=== PATIENT | male | born 1975 | race Caucasian/White ===

== ENCOUNTER 2022-09-15 14:34 | Emergency (ER) | payer OTHER, SELFPAY ==
--- NOTE | ~2022-09-15 | XR_ITS ---
EXAMINATION: XR chest 1V portable 09/15/2022 14:56 INDICATION: Chest pain PROCEDURE: AP portable chest COMPARISON: No prior studies for comparison. FINDINGS: The lungs are clear. The cardiomediastinal silhouette is within normal limits. There are no pleural effusions. There is no pneumothorax suspected. IMPRESSION: 1: NO ACUTE CARDIOPULMONARY DISEASE. Reviewed, dictated and finalized at location A.
[2022-09-15 14:35] VITALS: BP 113/76; PULSE 74; RESP 10; TEMP 36.3; O2SAT 100
[2022-09-15 14:40] VITALS: BP 117/79; PULSE 68; RESP 14; TEMP 36.6; O2SAT 97
--- NOTE | 2022-09-15 14:40 | ECG_ITS ---
Measurements Intervals [place] Rate: 61 P: 72 FL: 169 QRS: 85 QRSD: 99 T: 66 QT: 421 QTc: 425 Interpretive Statements SINUS RHYTHM NORMAL ECG NO PREVIOUS ECG AVAILABLE FOR COMPARISON Electronically Signed On 09-15-2022 20:31:32 CDT by Avelino Segovia D.O.
--- NOTE | 2022-09-15 14:40 | ED.CHESTPAIN ---
HPI - Chest Pain General Chief Complaint: Chest Pain Stated Complaint: chest pain Time Seen by Provider: 09/15/22 14:40 Source: patient Mode of arrival: ambulatory Limitations: no limitations History of Present Illness HPI narrative: 46-year-old male, smoker with a positive family history of coronary artery disease was smoking marijuana and synthetic THC 45 minutes ago when he developed -- acute onset substernal chest pain rated as 8/10. No radiation of the pain. -- Nausea with 5 episodes of vomiting -- no shortness of breath. No lightheadedness. -- Diaphoretic his friend called EMS and brought him to our ER. The patient had an EKG done by EMS which did not show any acute findings. The patient has ongoing chest pain 5/10. MD complaint: chest pain Onset (ago): minute(s) ( Symptoms started 45 minutes ago) Timing of current episode: constant Prior episodes: No Onset: during rest Pain location: substernal Pain radiation: none Severity: severe Pain scale (0-10): 8 Quality: aching Relieving factors: nothing Exacerbating factors: nothing Associated symptoms: nausea, vomiting and diaphoresis Risk Factors Coronary artery disease risk factors: smoking history and family history of CAD before age 50 Related Data Allergies Allergy/AdvReac Type Severity Reaction Status Date / Time Penicillins Allergy Hives Verified 09/15/22 14:37 milk AdvReac Anaphylaxis Verified 09/15/22 14:37 Review of Systems Review of Systems: All systems reviewed & are unremarkable except as noted in HPI and below Constitutional: Constitutional: Reports as per HPI and Reports no additional constitutional complaints Eyes: Eyes: Reports as per HPI and Reports no additional eye complaints ENT: Reports system reviewed and no additional complaints, except as documented and Reports as per HPI Cardiovascular: Cardiovascular: Reports as per HPI, Reports no additional cardiovascular complaints and Reports chest pain Respiratory: Respiratory: Reports as per HPI and Reports no additional respiratory complaints Gastrointestinal: Gastrointestinal: Reports as per HPI and Reports no additional gastrointestinal complaints Genitourinary: Genitourinary: Reports no additional male genitourinary complaints and Reports as per HPI Musculoskeletal: Musculoskeletal: Reports no additional musculoskeletal complaints and Reports as per HPI Integumentary/Breasts: Skin/Breast: Reports system reviewed and no additional complaints, except as docu and Reports as per HPI Neurologic: Reports system reviewed and no additional complaints, except as documented and Reports as per HPI Psychiatric: Psychiatric: Reports no additional psychiatric complaints and Reports as per HPI Endocrine: Endocrine: Reports no additional endocrine complaints and Reports as per HPI Hematologic/Lymphatic: Hematologic/Lymphatic: Reports no additional hematologic/lymphatic complaints and Reports as per HPI Allergic/Immunologic: Allergic/Immunologic: Reports no additional allergic/immunologic complaints and Reports as per HPI [facility] Family History Family History (Updated 09/15/22 @ 14:59 by Cristóbal Cazares MD) Mother Heart disease Social History Social History (Updated 09/15/22 @ 14:58 by Crsitóbal Cazares MD) Social History: smoker. Marijuana user Exam Const: General: diaphoretic Orientation/consciousness: patient oriented x3 Limitations: no limitations HENMT: Head: normal to inspection Ears: external ears normal Face/Nose/Sinus: Normal external nose present Face and sinus: normal facial exam Mouth: Yes Normal oral and palatal mucosa present Throat: posterior oropharynx normal Eyes: Conjunctivae: conjunctivae normal Pupils: Equal, round and reactive pupils present EOM: EOMs intact bilaterally Direct Ophthalmoscopy: no photophobia Neck: Neck: normal visual inspection, no lymphadenopathy and no meningeal signs Chest: Chest palpation & inspection: normal inspection of the
[2022-09-15] MEDS: SODIUM CHLORIDE 0.9% IV 1,000 ML 1000 ML (14:43)
[2022-09-15] MEDS: ASPIRIN 81 MG CHEWABLE TABLET 324 MG PO (14:55)
[2022-09-15 15:03] LABS: Basophils Absolute Auto 0.06 K/mm3 (0.00-0.10); Basophils Percent Auto 0.6 % (0.0-1.0); Eosinophils Absolute Auto 0.22 K/mm3 (0.02-0.50); Eosinophils Percent Auto 2.1 % (1.0-6.0); Hematocrit 39.7 % (40.0-54.0); Hemoglobin 13.7 g/dL (14.0-18.0); Immature Granulocyte Absolute 0.04 K/mm3 (0.00-0.00); Immature Granulocyte Percent A 0.4 % (0.0-0.0); Lymphocytes Absolute Auto 2.34 K/mm3 (1.10-4.50); Lymphocytes Percent Auto 22.2 % (18.0-42.0); Mean Corpuscular HGB Conc 34.5 g/dL (32.0-36.0); Mean Corpuscular Hemoglobin 31.6 pg (27.0-31.0); Mean Corpuscular Volume 91.5 fL (78.0-102.0); Mean Platelet Volume 9.2 fl (8.7-11.0); Monocytes Absolute Auto 0.69 K/mm3 (0.10-0.90); Monocytes Percent Auto 6.6 % (2.0-11.0); Neutrophils Absolute Auto 7.2 K/mm3 (1.7-7.2); Neutrophils Percent Auto 68.1 % (50.0-70.0); Platelet Count Result 357 K/mm3 (150-420); Red Blood Count 4.34 M/mm3 (4.70-6.10); Red Cell Distribution Width 11.9 % (11.6-14.4); White Blood Count 10.5 K/mm3 (4.8-10.8)
[2022-09-15 15:21] LABS: Prothrombin Time 10.9 Seconds (9.64-11.0)
[2022-09-15 15:26] LABS: Alanine Aminotransferase 20 U/L (16-63); Albumin Level 3.5 g/dL (3.4-5.0); Alkaline Phosphatase 70 U/L (46-116); Anion Gap 9 mmol/L (8-16); Aspartate Amino Transferase < 10 U/L (15-37); Bilirubin,Total 0.7 mg/dL (0.00-1.00); Blood Urea Nitrogen 13 mg/dL (7-18); Calcium 8.8 mg/dL (8.5-10.1); Carbon Dioxide 28 mmol/L (21-32); Chloride 102 mmol/L (98-108); Estimated CRCL calculation 108 ml/min; Estimated Glomerular Filt Rate > 60; Glucose 138 mg/dL (70-99); NT Pro B Type Natriuretic Pept 25 pg/mL (0-125); Osmolality Calculated 290 mOsm/kg (285-295); Potassium 3.6 mmol/L (3.5-5.1); Sodium 139 mmol/L (136-145); Total Protein 6.9 g/dL (6.4-8.2); Troponin I < 4.0 ng/L (0.00-60.4)
[2022-09-15 15:29] LABS: D Dimer 0.31 mg/L (0.19-0.50)
[2022-09-15 15:30] VITALS: BP 112/79; PULSE 55; RESP 14; O2SAT 100
[2022-09-15 15:30] LABS: Partial Thromboplastin Time 23.6 SEC (23.90-30.70)
[2022-09-15 16:00] VITALS: BP 104/69; PULSE 57; RESP 14; O2SAT 100
[2022-09-15 16:30] VITALS: BP 106/76; PULSE 58; RESP 14; O2SAT 99
--- NOTE | 2022-09-15 16:32 | PC.NURSE ---
1530-PHYSICIAN AT BEDSIDE
[2022-09-15 17:30] VITALS: BP 110/75; PULSE 59; RESP 16; O2SAT 100
--- NOTE | 2022-09-15 17:51 | PC.NURSE ---
1645-SLIP SEAT COVERER AT BEDSIDE, PT NOTED TO BE RESTING ON STRETCHER, APPEARS SLEEP. PT IS EASILY AROUSED BY NAME. SLIP SEAT COVERER UPDATED PT REGARDING PLAN OF CARE. PT VERBALIZED UNDERSTANDING. PT REPORTS CHEST PAIN STILL THERE BUT NOT BAD MAYBE LIKE A 2 OR 3. PT DENIES ANY NEEDS AT THIS TIME, CALL LIGHT REMAINS IN REACH.
--- NOTE | 2022-09-15 17:54 | PC.NURSE ---
1750-PT FAMILY/FRIEND ARRIVES TO BEDSIDE.
--- NOTE | 2022-09-15 18:00 | ECG_ITS ---
Measurements Intervals [place] Rate: 56 P: 48 HI: 166 QRS: 88 QRSD: 106 T: 51 QT: 419 QTc: 407 Interpretive Statements SINUS BRADYCARDIA MINIMAL Q WAVES- ANTEROLAT/INF LEADS BASELINE ARTIFACT- II, III, V1-V3 BORDERLINE ECG COMPARED TO ECG 09/15/2022 14:51:07 SINUS BRADYCARDIA NOW PRESENT Electronically Signed On 09-15-2022 20:32:24 CDT by Avelino Segovia D.O.
[2022-09-15 18:06] LABS: Appearance Urine Clear (Clear); Bilirubin Urine Negative (Negative); Blood Urine Negative (Negative); Color Urine Yellow (Yellow); Glucose Urine UA Negative (Negative); Ketones Urine Negative (Negative); Leukocyte Esterase Ur 1+ LEU/UL (Negative); Nitrate Urine Negative (Negative); Protein Urine Negative (Negative); Specific Grav Ur 1.025 (1.010-1.020)
[2022-09-15 18:13] LABS: Troponin I < 4.0 ng/L (0.00-60.4)
[2022-09-15 18:14] LABS: Add Urine Microscopic? YES; Bacteria Urine 1+ /hpf; Mucus Urine Few /lpf; RBC Urine 0-2 /hpf (0-2); Squamous Epithelial Cell Urine None seen /hpf (Few); WBC Urine 21-30 /hpf (0-3)
--- NOTE | 2022-09-15 18:19 | PC.NURSE ---
1800-OIL GAS AND PIPE TESTER AT BEDSIDE TO REMIND PT OF URINE SAMPLE STILL NEEDED. PT EXPRESSES HE WOULD TRY TO PROVIDE. CALL LIGHT ANSWERED BY OIL GAS AND PIPE TESTER, SPECIMEN COLLECTED AND SENT TO LAB. PT REQUESTS FOOD AT THIS TIME. PHYSICIAN AGREEABLE TO PT HAVING FOOD. OIL GAS AND PIPE TESTER PROVIDED WITH MEAL BOX AND SODA. PT DENIES ANY OTHER NEEDS AT THIS TIME. CALL LIGHT REMAINS IN REACH.
--- NOTE | 2022-09-15 18:21 | PC.NURSE ---
182-REPEAT EKG BEING PERFORMED
--- NOTE | 2022-09-15 18:43 | PC.NURSE ---
1843-PHYSICIAN AT BEDSIDE DISCUSSING DISCHARGE PLAN
--- NOTE | 2022-09-18 13:26 | PC.NURSE ---
Final urine culture report: no growth, no further treatment or action needed.
== END 2022-09-15 18:50 | disposition home or self-care (01) ==
PROVIDERS: Emergency Provider Internal Medicine Critical Care Medicine; PCP Family Medicine
DX: N30.00 Acute cystitis without hematuria (principal); R07.89 Other chest pain; I25.10 Atherosclerotic heart disease of native coronary artery without angina pectoris; F12.90 Cannabis use, unspecified, uncomplicated; F17.200 Nicotine dependence, unspecified, uncomplicated
CPT/HCPCS: 36415; 71045; 80053; 81001; 83605; 83880; 84484; 85025; 85380; 85610; 85730; 87086; 93005; 96360; 96361; 99284; A9270; J7030